=== PATIENT | female | born 1955 | race Caucasian/White ===

== ENCOUNTER 2023-12-16 08:02 | Outpatient (CLI) | payer OTHER, SELFPAY ==
--- OUTSIDE RECORDS SUMMARY | 2023-12-18 11:38 | XMS_ITS | Clinical Summary ---
Author Organization [facility] Address [address] [place] [address] Care Team Providers Care Customer Service Operator Name Role Phone System, Provider Not In Primary Care Provider Un available Allergies Active Allergy Reactions Criticality Noted Date Comments Doxycycline 07/05/2023 Rash Erythromycin Hives 10/20/2022 Gadolinium Swelling 10/20/2022 Soy Allergy Swelling 10/20/2022 Nuts Swelling 10/20/2022 Throat & tongue swelling Medications Medication Sig Dispensed Refills Start Date End Date Status EPINEPHrine (ANY BX GENERIC EQUIV) 0.3 MG/0.3ML injection 2-pack Inject 0.3 mLs (0.3 mg) into the muscle as needed for anaphylaxis May repeat one time in 5-15 minutes if response to initial dose is inadequate. 2 each 10/20/2022 Active Additional Information Patient not taking.Reported on 07/05/2023 raloxifene (EVISTA) 60 MG tablet Take 60 mg by mouth daily Active phenazopyridine (PYRIDIUM) 200 MG tabletIndications:D ysuria Take 1 tablet (200 mg) by mouth 3 times daily as needed for irritation 6 tablet 06/23/2023 Active Additional Information Patient not taking.Reported on 07/05/2023 Active Problems Problem Noted Date Diagnosed Date Gastroesophageal reflux disease without esophagi tis 05/21/2022 Overview: Last Assessment & Plan: Chronic, currently not at goal Discussed diet changes PPI BID and Famotidine BID for 2 weeks Then stop PPI and continue with Famotidine for 2 weeks Then try to wean famotidine to once daily Diverticulosis 03/07/2022 History of total hysterectomy 03/07/2022 Type 2 diabetes mellitus 03/07/2022 Overview: Last Assessment & Plan: Diabetes is unchanged and not at treatment goal. Pertinent lab review: A1c trend: 04/05/2021: 6.6 (H) Last BMP: Na 142; K 4.3; BUN 15; Creat 1.03; eGFR 60 on 04/05/2021. Dietary recommendations for ADA diet. Regular aerobic exercise. States she completed labs that were ordered at [facility] and they were reported to [facility] instead of [place] Follow with PCP SVT (supraventricular tachycardia) 03/07/2022 Asthma 11/18/2016 Anxiety 11/18/2016 Overview: Pt has declined behavioral health referral and longer acting medications- does not feel is necessary at this time Has acute anxiety episodes a handful of times a month Would like to continue the Xnanx Discussed appropriate use, risks and benefits Refill available Last Assessment & Plan: Pt has declined behavioral health referral and longer acting medications- does not feel is necessary at this time Has acute anxiety episodes a handful of times a month Would like to continue the Xnanx Discussed appropriate use, risks and benefits Refill available Social History Tobacco Use Types Packs/Day Years Used Date Smoking Tobacco: Never Smokeless Tobacco: Never Alcohol Use Standard Drinks/Week Comments Yes 0 (1 standard drink = 0.6 oz pur e alcohol) Adolescent Education Answer Date Record ed Getting School Help Needed Not on file 12/08 Sex and Gender Information Value Date Recorded Sex Assigned at Not on file Gender Identity Not on file Sexual Orientation Not on file Last Filed Vital Signs Vital Sign Reading Time Taken Comments Blood Pressure 132/74 07/05/2023 2:13 PM CDT Pulse 69 07/05/2023 2:13 PM CDT Temperature 36.9 ??C (98.5 ??F) 07/05/2023 2:13 PM CD T Respiratory Rate 14 07/05/2023 2:13 PM CDT Oxygen Saturation 97% 07/05/2023 2:13 PM CDT Inhaled Oxygen Concentration - - Weight 93.9 kg (207 lb) 07/05/2023 2:13 PM CDT Height - - Body Mass Index - - Plan of Treatment Health Maintenance Due Date Last Done Comments A1C 1956 ADVANCE CARE PLANNING 1956 ANNUAL REVIEW OF HM ORDERS 1956 ASTHMA ACTION PLAN 1956 ASTHMA CONTROL TEST [address] COLONOGRAPHY 1956 DEXA 1956 DIABETIC FOOT EXAM 1956 EYE EXAM 1956 FIT 1956 FLEX SIG 1956 LIPID 1956 MICROALBUMIN 1956 sDNA (Cologuard) 1956 COLONOSCOPY 1966 COLORECTAL CANCER SCREENING 1966 HEPATITIS C SCREENING 1974 ZOSTER IMMUNIZATION (1 of 2) 2006 RSV VACCINE (1 - Risk 60-74 years 1-dose series) 2016 FALL RISK ASSESSMENT 2021 MEDICARE ANNUAL WELLNESS VISIT 2021 PHQ-2 (once per calendar year) 2023 MAMMO SCREENING 09/20/2023 09/19/2021 COVID-19 Vaccine ( season) 2023 12/22/2021, 07/25/2021, 01/14/2021, Additional history exists INFLUENZA VACCINE (#1) 2023 12/13/2020, 2020 DTAP/TDAP/TD IMMUNIZATION (2 - Td or Tdap) 01/06/2031 01/06/2021 Pneumococcal Vaccine: 65+ Years Completed 09/29/2021 HPV IMMUNIZATION Aged Out No longer e ligible based on patient's age to complete this topic MENINGITIS IMMUNIZATION Aged Out No l onger eligible based on patient's age to complete this topic RSV MONOCLONAL ANTIBODY Aged Out No l onger eligible based on patient's age to complete this topic Care Teams Customer Service Operator Relationship Specialty Start Date End Date System, Provider Not In PCP - General Clinic 10/20/22
--- OUTSIDE RECORDS SUMMARY | 2023-12-18 11:38 | XMS_ITS | Encounter Summary ---
Author Organization [facility] Address [facility] [place] [address] Care Team Providers Care Fill Manager Name Role Phone System, Provider Not In Primary Care Provider Un available Encounter Details Date Type Department Care Team (Late st Contact Info) Description 06/26/2023 Telephone [facility] Centralized Scheduling [address] [place] [address] System, Provider Not In Social History Tobacco Use Types Packs/Day Years Used Date Smoking Tobacco: Never Assessed Adolescent Education Answer Date Record ed Getting School Help Needed Not on file 12/08 Sex and Gender Information Value Date Recorded Sex Assigned at Not on file Gender Identity Not on file Sexual Orientation Not on file documented as of this encounter Miscellaneous Notes * Telephone Encounter - Bethany Burleson LPN - 06/26/2023 1:01 PM CDT Notified pt to continue on antibiotic as prescribed. * Telephone Encounter - Mandi Lundy MD - 06/26/2023 11:53 AM CDT Her urine culture shows that the antibiotic she was prescribed should be a good fit for the bacteria causing her infection. No medication change is needed right now. * Telephone Encounter - Ivonne Newman - 06/26/2023 11:16 AM CDT Test Results Who ordered the test: bryn parra Type of test: Lab Date of test: 06/22 Where was the test performed: [facility] What are your questions/concerns?: pt wondering if she needs to change antibiotics Okay to leave a detailed message?: Yes at Cell number on file: Telephone Information: documented in this encounter Plan of Treatment Not on file documented as of this encounter Visit Diagnoses Not on filedocumented in this encounter Care Teams Fill Manager Relationship Specialty Start Date End Date System, Provider Not In PCP - General Clinic 10/20/22 documented as of this encounter
--- OUTSIDE RECORDS SUMMARY | 2023-12-18 11:38 | XMS_ITS | Referral Summary ---
Author Organization [facility] Address [address] [place] [address] Care Team Providers Care Workgroup Leader Name Role Phone System, Provider Not In [...] she completed labs that were ordered at [facility] and they were reported to [place] instead of [place] Follow with PCP SVT (supraventricular tachycardia) 03/07/2022 [...] Mass Index - - Plan of Treatment Not on file Care Teams Workgroup Leader Relationship Specialty Start Date End Date System, Provider Not In PCP - General Clinic 10/20/22
== END 2023-12-16 08:03 | disposition home or self-care (01) ==
LOC: NFLDREF 12-18 11:36
PROVIDERS: PCP Emergency Medicine; Referring Provider Emergency Medicine; Visit Provider Emergency Medicine
DX: Z13.228 Encounter for screening for other metabolic disorders (principal); Z13.220 Encounter for screening for lipoid disorders
CPT/HCPCS: 80048; 80061

== ENCOUNTER 2023-12-18 13:22 | Outpatient (CLI) | payer OTHER, SELFPAY ==
--- OUTSIDE RECORDS SUMMARY | 2023-12-18 13:24 | XMS_ITS | Referral Summary ---
Author Organization [facility] Address [address] [place] [address] Care Team Providers Care Mobile Paint Specialist Name Role Phone System, Provider Not In [...] completed labs that were ordered at [facility] and they were reported to [place] instead of [place] Follow with PCP SVT (supraventricular tachycardia) 03/07/2022 [...] of Treatment Not on file Care Teams Mobile Paint Specialist Relationship Specialty Start Date End Date System, Provider Not In PCP - General Clinic 10/20/22
--- OUTSIDE RECORDS SUMMARY | 2023-12-18 13:24 | XMS_ITS | Clinical Summary ---
Author Organization [facility] Address [address] [place] [address] Care Team Providers Care Washer Blanket Name Role Phone System, Provider Not In [...] she completed labs that were ordered at [facility] and they were reported to [place] instead of [place] Follow with PCP SVT (supraventricular tachycardia) 03/07/2022 [...] age to complete this topic Care Teams Washer Blanket Relationship Specialty Start Date End Date System, Provider Not In PCP - General Clinic 10/20/22
--- OUTSIDE RECORDS SUMMARY | 2023-12-18 13:25 | XMS_ITS | Encounter Summary ---
Author Organization [facility] Address [facility] [place] [address] Care Team Providers Care Iuss Master Analyst Name Role Phone System, Provider Not In Primary Care Provider Un available Encounter Details Date Type Department Care Team (Late st Contact Info) Description 06/26/2023 Telephone [facility] Centralized Scheduling [address] [place] [address] System, Provider Not In Social [...] test: 06/22 Where was the test performed: [facility] What are your questions/concerns?: pt wondering if she needs to change antibiotics Okay to leave a detailed message?: Yes at Cell number on file: Telephone Information: documented in this encounter Plan of Treatment Not on file documented as of this encounter Visit Diagnoses Not on filedocumented in this encounter Care Teams Iuss Master Analyst Relationship Specialty Start Date End Date System, Provider Not In PCP - General Clinic 10/20/22 documented as of this encounter
== END 2023-12-18 13:23 | disposition home or self-care (01) ==
LOC: LKVREF 13:22
PROVIDERS: PCP Emergency Medicine; Visit Provider Emergency Medicine
DX: Z00.00 Encounter for general adult medical examination without abnormal findings (principal); R73.03 Prediabetes; Z13.820 Encounter for screening for osteoporosis
CPT/HCPCS: 82306

== ENCOUNTER 2024-01-15 14:27 | Outpatient (CLI) | payer OTHER, SELFPAY ==
--- OUTSIDE RECORDS SUMMARY | 2024-01-15 14:29 | XMS_ITS | Encounter Summary ---
Author Organization [facility] Address [address] [place] [address] Care Team Providers Care Promotions Producer Name Role Phone System, Provider Not In Primary Care Provider Un available Reason for Visit * Reason Comments Urgent Care Grandson has thrush, was babysitting him Saturday and wants to make sure she doesn't have it. Encounter Details Date Type Department Care Team (Late st Contact Info) Description 01/06/2024 10:00 AM CDT Office Visit [facility] [address] [place] [address] Britney Jarquin PA-C [facility] [address] [place] [address] Candidiasis of mouth (Primary Dx) Social History Tobacco Use Types Packs/Day Years Used Date Smoking Tobacco: Never Passive Smoke Exposure: Never Smokeless Tobacco: Never Tobacco Cessation:Counseling Given: Not Answered Alcohol Use Standard Drinks/Week Comments Yes 0 (1 standard drink = 0.6 oz pur e alcohol) Adolescent Education Answer Date Record ed Getting School Help Needed Not on file 12/08 Comments No Sex and Gender Information Value Date Recorded Sex Assigned at Not on file Legal Sex Female 3:38 PM CDT Gender Identity Not on file Sexual Orientation Not on file documented as of this encounter Last Filed Vital Signs Vital Sign Reading Time Taken Comments Blood Pressure 138/84 01/06/2024 10:07 AM CDT Pulse 71 01/06/2024 10:07 AM CDT Temperature 37.1 ??C (98.8 ??F) 01/06/2024 10:07 AM C DT Respiratory Rate 18 01/06/2024 10:07 AM CDT Oxygen Saturation 96% 01/06/2024 10:07 AM CDT Inhaled Oxygen Concentration - - Weight 92.5 kg (204 lb) 01/06/2024 10:07 AM CDT Height 161.3 cm (5' 3.5) 01/06/2024 10:07 AM CD T Body Mass Index 35.57 01/06/2024 10:07 AM CDT documented in this encounter Patient Instructions * Patient Instructions* Britney Jarquin PA-C - 01/06/2024 10:00 AM CDT Patient was educated on the natural course of condition. Patient was exposed to thrush but thrush is not typically passed on. She is leaving to [place] and would like medication in case she develops symptoms. Symptoms of thrush were explained. Conservative measures discussed including good oral hygiene, and limit sugary food/drinks. See your primary care provider if symptoms worsen or do not improve in 7 days. Seek emergency care if you develop severe oral pain or difficulty swallowing. documented in this encounter Progress Notes * Britney Jarquin PA-C - 01/06/2024 10:00 AM CDT URGENT CARE VISIT: SUBJECTIVE: Janneth Dixon is a 68 year old female presenting with a chief complaint of possible thrush. She was exposed to grandson who has it. Onset was 3 day(s) ago. She denies the following symptoms: stuffy nose, cough - productive, and burning mouth. Course of illness is same. Treatment measures tried include None tried with no relief of symptoms. Predisposing factors include None. PMH: History reviewed. No pertinent past medical history. Allergies: Doxycycline, Erythromycin, Gadolinium, Soy allergy, and Tree nuts [nuts] Medications: Current Outpatient Medications Medication Sig Dispense Refill ALPRAZolam (XANAX) 0.25 MG tablet Take 1 tablet by mouth five times a week as needed for anxiety. famotidine (PEPCID) 20 MG tablet Take 20 mg by mouth. nystatin (MYCOSTATIN) 195599 UNIT/ML suspension Take 5 mLs (500,000 Units) by mouth 4 times daily for 7 days. 140 mL 0 raloxifene (EVISTA) 60 MG tablet Take 60 mg by mouth daily. zolpidem (AMBIEN) 5 MG tablet take 1 tablet by mouth every day at bedtime as needed for insomnia EPINEPHrine (ANY BX GENERIC EQUIV) 0.3 MG/0.3ML injection 2-pack Inject 0.3 mLs (0.3 mg) into the muscle as needed for anaphylaxis May repeat one time in 5-15 minutes if response to initial dose is inadequate. (Patient not taking: Reported on 07/05/2023) 2 each 0 phenazopyridine (PYRIDIUM) 200 MG tablet Take 1 tablet (200 mg) by mouth 3 times daily as needed for irritation (Patient not taking: Reported on 07/05/2023) 6 tablet 0 Social History: Social History Tobacco Use Smoking status: Never Passive exposure: Never Smokeless tobacco: Never Substance Use Topics Alcohol use: Yes ROS: Review of systems negative except as stated above. OBJECTIVE: BP 138/84 Pulse 71 Temp 98.8 ??F (37.1 ??C) (Oral) Resp 18 Ht 1.613 m (5' 3.5) Wt 92.5 kg (204 lb) SpO2 96% BMI 35.57 kg/m?? GENERAL APPEARANCE: healthy, alert and no distress EYES: EOMI, PERRL, conjunctiva clear HENT: ear canals and TM's normal. Nose and mouth without ulcers, erythema or lesions NECK: supple, nontender, no lymphadenopathy RESP: lungs clear to auscultation - no rales, rhonchi or wheezes CV: regular rates and rhythm, normal S1 S2, no murmur noted SKIN: no suspicious lesions or rashes ASSESSMENT: ICD-10-CM 1. Candidiasis of mouth B37.0 nystatin (MYCOSTATIN) 866249 UNIT/ML suspension PLAN: Patient Instructions Patient was educated on the natural course of condition. Patient was exposed to thrush but thrush is not typically passed on. She is leaving to [place] and would like medication in case she develops symptoms. Symptoms of thrush were explained. Conservative measures discussed including good oral hygiene, and limit sugary food/drinks. See your primary care provider if symptoms worsen or do not improve in 7 days. Seek emergency care if you develop severe oral pain or difficulty swallowing. Patient verbalized understanding and is agreeable to plan. The patient was discharged ambulatory and in stable condition. Britney Jarquin PA-C .................... 01/06/2024 10:33 AM documented in this encounter Plan of Treatment Not on file documented as of this encounter Visit Diagnoses Diagnosis Candidiasis of mouth- Primary documented in this encounter Care Teams Promotions Producer Relationship Specialty Start Date End Date System, Provider Not In PCP - General Clinic 10/20/22 documented as of this encounter
--- OUTSIDE RECORDS SUMMARY | 2024-01-15 14:29 | XMS_ITS | Referral Summary ---
Author Organization [facility] Address [address] [place] [address] Care Team Providers Care Financial Aid Coordinator Name Role Phone System, Provider Not In Primary Care Provider Un available Encounters Date Type Department Care Team Description 01/06/2024 Travel 01/06/2024 10:00 AM CDT Office Visit [facility] [place] [address] [place] [phone] Britney Jarquin PA-C Candidiasis of mouth (Primary Dx) from Last 3 Months Allergies Active Allergy Reactions Criticality Noted Date Comments Doxycycline 07/05/2023 Rash Erythromycin Hives 10/20/2022 Gadolinium Swelling 10/20/2022 Soy Allergy Swelling 10/20/2022 Nuts Swelling 10/20/2022 Throat & tongue swelling Medications EPINEPHrine (ANY BX GENERIC EQUIV) 0.3 MG/0.3ML injection 2-pack Inject 0.3 mLs (0.3 mg) into the muscle as needed for anaphylaxis May repeat one time in 5-15 minutes if response to initial dose is inadequate. 2 each 3 Active Additional Information Patient not taking.Reported on 07/05/2023 raloxifene (EVISTA) 60 MG tablet Take 60 mg by mouth daily. Active phenazopyridine (PYRIDIUM) 200 MG tabletIndicatio ns:Dysuria Take 1 tablet (200 mg) by mouth 3 times daily as needed for irritation 6 tablet 4 Active Additional Information Patient not taking.Reported on 07/05/2023 ALPRAZolam (XANAX) 0.25 MG tablet Take 1 tablet by mouth five times a week as needed for anxiety. 4 Active famotidine (PEPCID) 20 MG tablet Take 20 mg by mouth. 2 Active zolpidem (AMBIEN) 5 MG tablet take 1 tablet by mouth every day at bedtime as needed for insomnia Active nystatin (MYCOSTATIN) 917129 UNIT/ML suspensionIndic ations:Candidia sis of mouth Take 5 mLs (500,000 Units) by mouth 4 times daily for 7 days. 140 mL 4 01/13/20 24 Active Problems Problem Noted Date Diagnosed Date Class 2 severe obesity due t o excess calories with serious comorbidity in adult 01/06/2024 Gastroesophageal reflux disease without esophagi tis 05/21/2022 Overview (10/20/2022): Last Assessment & Plan: Chronic, currently not at goal Discussed diet changes PPI BID and Famotidine BID for 2 weeks Then stop PPI and continue with Famotidine for 2 weeks Then try to wean famotidine to once daily Diverticulosis 03/07/2022 History of total hysterectomy 03/07/2022 Type 2 diabetes mellitus 03/07/2022 Overview (10/20/2022): Last Assessment & Plan: Diabetes is unchanged and not at treatment goal. Pertinent lab review: A1c trend: 04/05/2021: 6.6 (H) Last BMP: Na 142; K 4.3; BUN 15; Creat 1.03; eGFR 60 on 04/05/2021. Dietary recommendations for ADA diet. Regular aerobic exercise. States she completed labs that were ordered at [facility] and they were reported to [place] instead of [place] Follow with PCP SVT (supraventricular tachycardia) 03/07/2022 Asthma 11/18/2016 Anxiety 11/18/2016 Overview (10/20/2022): Pt has declined behavioral health referral and [...] appropriate use, risks and benefits Refill available Immunizations Name Administration Dates Next Due COVID-19 12+ (Pfizer) 02/12/2023,09/28/2022 Flu, Unspecified 01/08/2023 Influenza (High Dose) Trivalent,PF (Fluzone) 11/2023 Influenza Vaccine 65+ (Fluzone HD) 12/29/2021 Influenza Vaccine >6 months,quad, PF 12/13/2020 Influenza,INJ,MDCK,PF,Quad >6mo(Flucelvax) 12/13 Pneumococcal 20 valent Conjugate (Prevnar 20) RSV Vaccine, Unspecified 01/08/2023 TDAP (Adacel,Boostrix) 01/06/2021,01/06/2021 Td (Adult), Adsorbed 01/06/2021,01/03/2011 Zoster Vaccine, Unspecified (historical) 020,01/09/2019 Social History Tobacco Use Types Packs/Day Years [...] Mass Index 35.57 01/06/2024 10:07 AM CDT Plan of Treatment Not on file Insurance [place] [id number] [facility] [employer] [place] [id number] [facility] [employer] Care Teams Financial Aid Coordinator Relationship Specialty Start Date End Date System, Provider Not In PCP - General Clinic 10/20/22
--- OUTSIDE RECORDS SUMMARY | 2024-01-15 14:29 | XMS_ITS | Clinical Summary ---
Author Organization [facility] Address [address] [place] [address] Care Team Providers Care Media Librarian Name Role Phone System, Provider Not In [...] as needed for insomnia Active nystatin (MYCOSTATIN) 370073 UNIT/ML suspensionIndic ations:Candidia sis of mouth Take [...] she completed labs that were ordered at [facility] and they were reported to [place] instead of [place] Follow with PCP SVT (supraventricular tachycardia) 03/07/2022 [...] appropriate use, risks and benefits Refill available Encounters Date Type Department Care Team Description 01/06/2024 10:00 AM CDT Office Visit [facility] [place] [address] [place] [phone] Britney Jarquin PA-C Candidiasis of mouth (Primary Dx) 01/06/2024 Travel from Last 3 Months Immunizations Name Administration Dates Next Due COVID-19 [...] 01/06/2024 10:07 AM CDT Plan of Treatment Health Maintenance Due Date [...] 1974 ZOSTER IMMUNIZATION (1 of 2) 2006 04/16/2019, 01/09/2019 RSV VACCINE (1 - Risk 60-74 years 1-dose series) 2016 FALL RISK ASSESSMENT 2021 MEDICARE ANNUAL WELLNESS VISIT 2021 PHQ-2 (once per calendar year) 2023 MAMMO SCREENING 09/20/2023 09/19/2021 DTAP/TDAP/TD IMMUNIZATION (4 - Td or Tdap) 01/06/2031 01/06/2021, 01/06/2021, 01/06/2021, Additional history exists Pneumococcal Vaccine: 65+ Years Completed 09/29/2021 COVID-19 Vaccine Completed 12/21/2023, , 09/28/2022, Additional history exists INFLUENZA VACCINE Completed 12/25/2023, , 12/29/2021, Additional history exists HPV IMMUNIZATION Aged Out No longer e ligible based on patient's age to complete this topic MENINGITIS IMMUNIZATION Aged Out No l onger eligible based on patient's age to complete this topic RSV MONOCLONAL ANTIBODY Aged Out No l onger eligible based on patient's age to complete this topic Insurance [employer] [facility] [employer] [employer] Care Teams Media Librarian Relationship Specialty Start Date End Date System, Provider Not In PCP - General Clinic 10/20/22
--- OUTSIDE RECORDS SUMMARY | 2024-01-15 14:29 | XMS_ITS | Encounter Summary ---
Author Organization [facility] Address [address] [place] [address] Care Team Providers Care Director Of Solutions Architecture Name Role Phone System, Provider Not In Primary Care Provider Un available Encounter Details Date Type Department Care Team (Late st Contact Info) Description 06/26/2023 Telephone [facility] [employer] [employer] Centralized Scheduling [address] [place] [address] System, Provider Not In Social History Tobacco Use Types Packs/Day Years Used Date Smoking Tobacco: Never Assessed Adolescent Education Answer Date Record ed Getting School Help Needed Not on file 12/08 Comments Unknown Sex and Gender Information Value Date Recorded [...] test: 06/22 Where was the test performed: [facility] What are your questions/concerns?: pt wondering if she needs to change antibiotics Okay to leave a detailed message?: Yes at Cell number on file: Telephone Information: documented in this encounter Plan of Treatment Not on file documented as of this encounter Visit Diagnoses Not on filedocumented in this encounter Care Teams Director Of Solutions Architecture Relationship Specialty Start Date End Date System, Provider Not In PCP - General Clinic 10/20/22 documented as of this encounter
--- OUTSIDE RECORDS SUMMARY | 2024-01-15 14:29 | XMS_ITS | Encounter Summary ---
Author Organization [facility] Address [address] [place] [address] Care Team Providers Care Rough Planer Tender Name Role Phone System, Provider Not In Primary Care Provider Un available Encounter Details Date Type Department Care Team (Latest Contact Info) Description 01/06/2024 Travel Social History Tobacco Use Types Packs/Day Years Used Date Smoking Tobacco: Never Passive Smoke Exposure: Never Smokeless Tobacco: Never Alcohol Use Standard [...] on file documented as of this encounter Plan of Treatment Not on file documented as of this encounter Visit Diagnoses Not on filedocumented in this encounter Care Teams Rough Planer Tender Relationship Specialty Start Date End Date System, Provider Not In PCP - General Clinic 10/20/22 documented as of this encounter
--- NOTE | 2024-01-15 15:00 | CRLHL7_ITS ---
For Patients: As a result of the Century Cures Act, medical imaging exams and procedure reports are released immediately into your electronic medical record. You may view this report before your referring provider. If you have questions, please contact your health care provider. DXA BONE MINERAL DENSITY STUDY Reason for exam: Screening. Current height (in): 63.5. Weight (lb): 205. Menopause age: 49. Ethnicity: White. 1. Have you had a previous hip or vertebral fracture? No. 2. Have you had any fractures during your adult life which did not result from significant trauma (e.g., auto accident)? No. 3. Did either of your parents have a hip fracture? No. 4. Do you smoke? No. 5. Have you ever taken Glucocorticoids? No. 6. Do you have rheumatoid arthritis? No. 7. Do you have secondary osteoporosis? No. 8. Do you drink 3 or more alcoholic drinks per day? No. 9. Are you being treated for osteoporosis? No. 10. Have you ever taken any of the following medications: Actonel, Evista, Fosamax, Miacalcin, Reclast, Boniva, Forteo, HRT (i.e., estrogen/hormone therapy), Protelos, Prolia, Vitamin D, Calcium, other ??? please specify. ANSWER: Yes, Evista (i.e., raloxifene), vitamin D, and calcium. 11. Do you have any of the following medical conditions: Anorexia or bulimia, asthma or emphysema, end stage renal disease, hyperparathyroidism, any seizure disorders, cancer, inflammatory bowel diseases, hysterectomy, other ??? please specify. ANSWER: Yes, cancer and hysterectomy. 12. What was your maximum height (inches)? 64. 13. Do you perform weight bearing exercise regularly? No. 14. Do you regularly consume dairy products? Yes. 15. Do you drink caffeinated beverages? Yes. 16. At what age did your period start? 13. 17. Are you premenopausal? No. 18. How many full-term pregnancies have you had? 3. 19. Have you ever missed your period for more than 6 months in a row (not including or menopause)? No. TECHNIQUE: Bone mineral density study was performed using the [facility]. FINDINGS: The results of the study expressed as bone mineral density (BMD) are as follows: Lumbar spine L1 to L4: BMD: 1.173 g/cm2. T-score: 1.1. Z-score: 3.1 Neck Left: BMD: 0.926 g/cm2. T-score: 0.7. Z-score: 2.3 Right: BMD: 0.947 g/cm2. T-score: 0.9. Z-score: 2.5 Total Left: BMD: 0.983 g/cm2. T-score: 0.3. Z-score: 1.7 Right: BMD: 1.015 g/cm2. T-score: 0.6. Z-score: 2.0 IMPRESSION: Normal bone density. *Comparison exams done prior to 08/2019 were performed on different unit, Site Tour. Clayton Morton M.D. Diagnostic Radiologist [email or web address] [email or web address]/[email or web address]/Dictated by: Clayton Morton MD @ 01/16/2024 8:39:00 AM (Electronically Signed)
== END 2024-01-15 14:28 | disposition home or self-care (01) ==
LOC: RAD 14:27
PROVIDERS: PCP Emergency Medicine; Visit Provider Emergency Medicine
DX: Z13.820 Encounter for screening for osteoporosis (principal)
CPT/HCPCS: 77080

== ENCOUNTER 2024-02-25 09:33 | Outpatient (RCR) | payer OTHER, SELFPAY | END 2024-08-23 23:59 | disposition home or self-care (01) | LOC: CCIC 09:33 | PROVIDERS: PCP Emergency Medicine; Visit Provider Internal Medicine Hematology & Oncology | DX: D05.02 Lobular carcinoma in situ of left breast (principal); Z79.810 Long term (current) use of selective estrogen receptor modulators (SERMs); Z85.42 Personal history of malignant neoplasm of other parts of uterus | CPT/HCPCS: 99202; 99205 ==

== ENCOUNTER 2024-05-05 15:07 | Outpatient (CLI) | payer OTHER, SELFPAY | END 2024-05-05 15:08 | disposition home or self-care (01) | LOC: MAMMO 15:07 | PROVIDERS: PCP Emergency Medicine; Visit Provider Emergency Medicine | DX: Z12.31 Encounter for screening mammogram for malignant neoplasm of breast (principal) | CPT/HCPCS: 77063; 77067 ==